=== PATIENT | male | born 1955 | race Two or more races ===

== ENCOUNTER 2021-09-26 06:39 | Day surgery (SDC) | payer OTHER ==
[~2021-09-26 06:39] MED LIST: COZAAR50 MG PO
== END 2021-09-26 18:00 | disposition home or self-care (01) ==
LOC: CIR.AMB 06:39
PROVIDERS: ATTEND Surgery
DX: D24.2 Benign neoplasm of left breast (principal); I10 Essential (primary) hypertension; L80 Vitiligo; Z20.822 Contact with and (suspected) exposure to COVID-19; Z91.041 Radiographic dye allergy status